=== PATIENT | male | born 2000 | race African-American/Black ===

== ENCOUNTER → 2024-05-08 14:39 | Outpatient (CLI) | payer OTHER, SELFPAY ==
--- NOTE | 2024-05-08 14:41 | DI.MRI.S_ITS ---
PROCEDURE: MR SHOULDER RT W CON INDICATIONS: instability in right shoulder TECHNIQUE: After the administration of dilute intra-articular Gadolinium contrast, oblique coronal T1 and T2 spin echo with fat saturation, oblique sagittal T1 spin echo with and without fat saturation, oblique sagittal T2 fast spin echo with fat saturation, axial T1 spin echo with fat saturation through the shoulder. COMPARISON: [facility], , [place] ARTHROGRAM SHOULDER RT, 05/08/2024, 15:12. FINDINGS: Image quality: Excellent. Bones: Minimal marrow edema is present at the posterior-lateral greater tuberosity, representing a minimally impacted Hill-Sachs defect (6/10; 8/20). There is no corresponding osseous Bankart lesion. Otherwise, the marrow signal is within normal limits. There is no acute fracture or dislocation. Acromioclavicular joint: There is no significant degenerative change. There is a type 2 acromion. Glenohumeral joint: The joint space is preserved. Gadolinium-based intra-articular contrast is present in the joint space, which does not extend into the subacromial-subdeltoid bursa. Labrum: There is a discontinuous superior labral tear extending from the 1 o'clock position to the 4 o'clock position (6/9-14; 3 o'clock is anterior), with a glenoid labral articular disruption at the 3 o'clock position (6/13). Cartilage: There is no significant articular cartilage defect. Subacromial-subdeltoid bursa: There is a trace amount of fluid in the subacromial-subdeltoid bursa. Rotator cuff: The supraspinatus tendon is intact. The infraspinatus tendon is intact. The subscapularis tendon is intact. The teres minor tendon is intact. Long head of biceps tendon: The long head of the biceps tendon is present within the bicipital groove and intact. Musculature: Muscle bulk is preserved without evidence of denervation or fatty atrophy. Inferior glenohumeral ligaments/Axillary pouch: The axillary pouch is normal in thickness and signal. Coracoclavicular and coracoacromial ligaments: The coracoclavicular and coracoacromial ligaments are normal. Other: No other acute abnormality. IMPRESSION: 1. Subacute, minimally impacted Hill-Sachs defect without a corresponding osseous Bankart lesion. Please correlate for a history of anterior-inferior shoulder dislocation. 2. Superior labral tear with a GLAD lesion at the 3 o'clock position. Dictated by: Markie Zamarripa M.D. on 05/08/2024 at 16:28 Approved by: Markie Zamarripa M.D. on 05/08/2024 at 16:40
--- NOTE | 2024-05-08 14:42 | DI.RAD.S_ITS ---
PROCEDURE: [place] ARTHROGRAM SHOULDER RT INDICATIONS: instability in right shoulder COMPARISON: [facility], MR, MR SHOULDER RT W CON, 05/08/2024, 15:17. TECHNIQUE: The indications, alternatives, benefits, risks, and complications of the procedure were explained to the patient. Written informed consent was obtained and placed in the chart. The shoulder was examined fluoroscopically and a site for needle placement chosen for entry into the glenohumeral joint from an anterior approach. The skin was prepped and draped in a sterile fashion, and 1% lidocaine infiltrated from skin down to joint capsule. A spinal needle was inserted into the glenohumeral joint, and a small amount of iodinated contrast media injected to confirm intra-articular placement of the needle tip. This was followed by approximately 12 mL dilute solution of a gadolinium containing MR contrast agent. The needle was removed and a dressing was applied. The patient was given postprocedural instructions and sent to the MR suite for MR imaging. FINDINGS: A single fluoroscopic spot image demonstrates intra-articular location of injected iodinated contrast. IMPRESSION: Successful fluoroscopically guided administration of dilute Gadolinium solution into the shoulder joint for MR arthrogram. Dictated by: Savita Knox M.D. on 05/10/2024 at 18:12 Approved by: Savita Knox M.D. on 05/10/2024 at 18:12
[2024-05-08] MEDS: LIDOCAINE 1% 20 ML INJ (16:07)
[2024-05-08] MEDS: SODIUM CHLORIDE 0.9 % 20 ML VIAL IV (16:08)
== END ==
LOC: RAD 14:41
PROVIDERS: Referring Provider Student in an Organized Health Care Education/Training Program; Visit Provider Student in an Organized Health Care Education/Training Program
DX: M25.311 Other instability, right shoulder (principal); S43.491A Other sprain of right shoulder joint, initial encounter
CPT/HCPCS: 23350; 73040; 73222; A9579; Q9967